=== PATIENT | male | born 1985 | race African-American/Black ===

== ENCOUNTER 2016-09-24 20:32 | Emergency (ER) | payer OTHER ==
[~2016-09-24] VITALS: Ht 172.7 cm; Wt 95.3 kg
[2016-09-24] MEDS ORDERED: ZYRT10CA PO (20:41)
[2016-09-24] MEDS ORDERED: PATA2.5S OP (23:57)
[2016-09-24] MEDS ORDERED: AZEL0.1S3 (23:57)
[2016-09-25 00:27] VITALS: BP 120/69
== END 2016-09-25 00:28 | disposition home or self-care (01) ==
LOC: M ED 23:30
DX: H10.13 Acute atopic conjunctivitis, bilateral (principal); J30.9 Allergic rhinitis, unspecified; Z79.899 Other long term (current) drug therapy; F17.210 Nicotine dependence, cigarettes, uncomplicated